=== PATIENT | female | born 1945 | race Hispanic/Latino ===

== ENCOUNTER 2019-05-06 10:12 | Day surgery (SDC) | payer MEDICARE ==
[2019-05-06] MEDS ORDERED: NACL 0.9% 500 ML 500 ML IV SCH (11:00)
--- NOTE | 2019-05-06 11:26 | Anesthesia Consultation ---
Anesthesia Consult and Med Hx Date of service: 05/06/19 - Airway Anesthetic Teeth Evaluation: Partials ROM Head & Neck: Adequate Mental/Hyoid Distance: Adequate Mallampati Class: Class III Intubation Access Assessment: Possibly Difficult - Pulmonary Exam CTA: Yes - Cardiac Exam Cardiac Exam: No Murmur - Pre-Operative Health Status ASA Pre-Surgery Classification: ASA3 Proposed Anesthetic Plan: MAC - Pulmonary Hx Smoking: No Hx Respiratory Symptoms: No Hx Sleep Apnea: No - Cardiovascular System Hx Hypertension: Yes Hx Heart Attack/AMI: No Hx Percutaneous Transluminal Coronary Angioplasty (PTCA): No Hx Cardia Arrhythmia: Yes (a-fib) Hx Valvular Heart Disease: Yes (moderate MR) - Central Nervous System CVA: No - Gastrointestinal Hx Gastroesophageal Reflux Disease: No - Endocrine Hx Renal Disease: No Hx Liver Disease: No Hx Non-Insulin Dependent Diabetes: Yes Hx Hyperthyroidism: Yes - Other Systems Hx Obesity: Yes - Additional Comments Anesthesia Medical History Comments: No hx anesthetic complications. Cardiology records reviewed. Recent TTE normal EF, mild pHTN, moderate MR. Normal ST.
--- NOTE | 2019-05-06 11:26 | Anesthesia Day of Surgery ---
Anesthesia Day of Surgery - Day of Surgery Patient Examined: Yes Patient H&P Reviewed: Yes Patient is NPO: Yes
[2019-05-06 12:10] VITALS: BP 127/77
--- NOTE | 2019-05-06 14:01 | Post Anesthesia Evaluation ---
- Post Anesthesia Evaluation Patient Participated: Yes Airway Patent: Yes Stable Respiratory Function: Yes Nausea/Vomiting: No Temp > 96.8F: Yes Pain Manageable: Yes Adequeate Hydration: Yes Anesthesia Complications: No
[2019-05-06] MEDS ORDERED: DIPRIVAN 10 MG/ML IV ONE (18:33)
--- NOTE | 2019-05-06 23:55 | Procedure Note ---
CARDIOVERSION INDICATION FOR PROCEDURE: Atrial fibrillation. Informed consent was obtained. DESCRIPTION OF PROCEDURE: The patient was brought to the cardiac outpatient catheterization laboratory/electrophysiology laboratory at [facility] in stable condition in a fasted state. Intravenous sedation was provided by Anesthesiology. Elective DC cardioversion for atrial fibrillation was performed with the paddles positioned in the anterior and posterior locations. A single 200 joule discharge converted the patient to sinus rhythm. The patient recovered from anesthesia uneventfully. There were no complications. Post cardioversion ecg: sinus bradycardia 50 bpm. After meeting discharge criteria the patient was released from the outpatient department with instructions to follow up with her primary radiologic technology teacher as previously scheduled or sooner as needed. IMPRESSION: Successful electrical DC cardioversion of atrial fibrillation to sinus rhythm. JOB# [id number] FUENTES/SONAL FONTENOT
== END 2019-05-06 12:30 | disposition home or self-care (01) ==
LOC: CATHLABREC 10:12 → EDSTATUS 11:30 → CATHLABREC 12:30
PROVIDERS: ATTEND Internal Medicine
DX: I48.91 Unspecified atrial fibrillation (principal); I10 Essential (primary) hypertension; E66.9 Obesity, unspecified; E11.9 Type 2 diabetes mellitus without complications; E05.90 Thyrotoxicosis, unspecified without thyrotoxic crisis or storm; Z90.49 Acquired absence of other specified parts of digestive tract; Z68.31 Body mass index [BMI] 31.0-31.9, adult; Z98.890 Other specified postprocedural states; Z88.2 Allergy status to sulfonamides; Z79.84 Long term (current) use of oral hypoglycemic drugs; Z79.899 Other long term (current) drug therapy; Z88.8 Allergy status to other drugs, medicaments and biological substances
CPT/HCPCS: 82962; 92960; 93005; 93010; J2704; J7040